=== PATIENT | male | born 1970 | race Two or more races ===

== ENCOUNTER 2025-05-27 12:25 | Emergency (ER) | payer MEDICARE, MEDICAID, SELFPAY ==
[2025-05-27 12:24] VITALS: BP 136/91; PULSE 82; O2SAT 95
[2025-05-27 12:28] VITALS: BP 136/91; PULSE 81; RESP 16; TEMP 36.7; O2SAT 96; BMI 24.0
[2025-05-27 12:30] VITALS: BP 127/72; PULSE 78; O2SAT 94
--- OUTSIDE RECORDS SUMMARY | 2025-05-27 12:46 | XMS_ITS | Clinical Summary ---
Author Organization [facility] Address [address] [place] [address] Phone Care Team Providers Care Diving Board Assembler Name Role Phone Unavailable Primary Care Provider Unavailabl e Allergies No known active allergies Medications * This document contains information received from the source organization and may not represent a complete record from that organization. 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 COPD (chronic obstructive pulmonary disease) Hyperlipidemia 05/30/2022 Osteoarthritis 05/30/2022 Gout 05/30/2022 History of drug abuse 05/30/2022 Resolved Problems Problem Noted Date Diagnosed Date Resolved Date Depression with anxiety 10/27/202301/30 Medication monitoring encounter 05/30/2022 02/16/2024 History of alcohol abuse 05/30/2022 Social History Tobacco Use Types Packs/Day Years Used Date Smoking Tobacco: Never Assessed Sex and Gender Information Value Date Recorded Sex Assigned at Not on file Legal Sex Male 1:45 PM EDT Gender Identity Not on file Sexual Orientation Not on file Plan of Treatment Health Maintenance Due Date Last Done Comments Annual Wellness Exam 1973 DTaP/TDaP/Td (1 - Tdap) 1989 Hepatitis B Vaccine (1 of 3 - 19+ 3-dose series) 1989 Pneumococcal Vaccine 50+ (1 of 2 - PCV) 1989 Cologuard 2015 Colon Cancer Screening 2015 Colonoscopy 2015 FIT 2015 Sigmoidoscopy 2015 Virtual Colonography 2015 Zoster (1 of 2) 2020 COVID-19 Vaccine (1 - 2023-2 5 season) 2025 Influenza Vaccine (#1) 2025 Meningococcal B Vaccine Aged Out No l onger eligible based on patient's age to complete this topic Insurance [address] [place] [address] [facility] [id number] [facility]
[2025-05-27 13:01] VITALS: BP 114/77; PULSE 77; O2SAT 94
--- NOTE | 2025-05-27 13:20 | XR_ITS ---
FINAL REPORT CLINICAL HISTORY: Cough, shortness of breath FINDINGS: A portable view of the chest is obtained. There is no prior exam for comparison. Cardiac and mediastinal silhouettes are normal. There are changes of emphysema. The lungs are otherwise clear. There is no pleural effusion or pneumothorax. IMPRESSION: No acute process on this portable exam. Reviewed, Interpreted and Dictated by Reshma Fontana MD Transcribed by Sharri Nava Authenticated and . [facility]
[2025-05-27 13:31] VITALS: BP 142/84; PULSE 77; O2SAT 94
[2025-05-27 13:31] LABS: Albumin Level 4.8 g/dl (3.5-5.0); Chloride 97 mmol/L (98-107)
[2025-05-27 13:32] LABS: Potassium 4.6 mmoL/L (3.5-5.1); Sodium 135 mmol/L (136-145)
[2025-05-27 13:34] LABS: Blood Urea Nitrogen 9 mg/dl (9-20); Creatinine Clearance Estimated 95 mL/min (50-200); Creatinine,Serum 0.80 mg/dl (0.66-1.25); Estimated Glomerular Filt Rate 101 ml/min (>60); GFR (African American) 122 ML/MIN (>60)
[2025-05-27 13:35] LABS: Alanine Aminotransferase 15 U/L (12-78); Albumin/Globulin Ratio 1.5 (1.1-1.8); Alkaline Phosphatase 85 U/L (38-126); Anion Gap 14.6 mEq/L (5-15); Aspartate Amino Transferase 26 U/L (17-59); Bilirubin,Total 0.7 mg/dl (0.2-1.3); Calcium 9.8 mg/dl (8.4-10.2); Carbon Dioxide 28 mmol/L (22.0-30.0); Globulin 3.1 g/dL (1.3-3.2); Glucose 112 mg/dl (74-100); Hematocrit 48.8 % (42.0-52.0); Hemoglobin 16.8 g/dL (14.1-18.0); Immature Granulocytes % 1.0 %; Mean Corpuscular HGB Conc 34.4 g/dL (31.8-35.4); Mean Corpuscular Hemoglobin 31.3 pg (27.0-31.2); Mean Corpuscular Volume 91.0 fl (80-94); Nucleated Red Blood Cells % 0 %; Platelet Count 251 K/mm3 (142-424); Red Blood Count 5.36 M/mm3 (4.60-6.20); Red Cell Distribution Width-SD 44.2 fL; Total Protein,Serum 7.9 g/dl (6.3-8.2); White Blood Count 5.9 K/mm3 (4.8-10.8)
--- NOTE | 2025-05-27 13:35 | HMH.EDGENADL ---
Discharge Plan Disposition Patient Disposition: Home, Self-Care Condition: Good Activity Restrictions/Add. Instructions Additional Instructions/Restrictions: Please return if you have any new or worsening symptoms. Clinical Impressions Clinical Impression: Bilateral wheezing Sciatica Qualifiers: Laterality: right Qualified Code(s): M54.31 - Sciatica, right side Print Language Print Language: Belgian Discharge ED Provider: Octavio Qiu Adult HPI General Chief complaint: PAIN Stated complaint: lower right back pain Time Seen by Provider: 05/27/25 12:29 Mode of Arrival: EMS Source of Information: Patient and EMS Description of Symptoms (Recalled from ER Triage Doc. by RN): pt c/o R flank/back pain x1wk. pt reports N/V. He states the pain is 10/10 and radiates distal to his RLE. pt denies injury. pt denies urinary symptoms or abd pain. pt states he has tried tylenol, asa, and iburprofen without any relief. However, he has not taken any meds today for pain. History of Present Illness HPI narrative: This is a 54-year-old male patient, with past medical history of homelessness and tobacco abuse, who is presented to the Emergency Department today for multiple complaints. The patient's chief complaint to the nursing staff and to me is variable. He tells me that his chief complaint is a cough that is productive of phlegm as well as rhinorrhea and congestion for the last couple of days. He states that he has not run any fevers. No abdominal pain, nausea, vomiting or diarrhea. No chest pain. In addition to this, the patient also states that he is having pain in his right gluteus that is radiating down the posterior aspect of the right lower extremity. He has not had any weakness of the right lower extremity, no saddle anesthesia, no fevers. He is not having any urinary incontinence or urinary retention Related Data Allergies Allergy/AdvReac Type Severity Reaction Status Date / Time No Known Allergies Allergy Verified 05/27/25 12:34 [facility] Disclaimer: The information contained in this section may have been updated after the patient was seen, as this information can be updated by other users. Social History Smoking Status: Current every day smoker alcohol intake: former current occupational status: unemployed Travel in the last 8 weeks?: None ROS Obtained: Yes Systems reviewed as appropriate & no additional complaints except as documented Physical Exam General General appearance: other (See MDM) Respiratory Respiratory exam: Present other (See MDM) Cardiovascular Cardiovascular exam: Present other (See MDM) Neurological Exam Neurological exam: Present other (See MDM) Medical Decision Making Medical Records Medical records reviewed: Yes I reviewed the patient's medical records. Screening: Per USPSTF and CDC recommendations, given the prevalence of disease in our region, it is our hospital?s policy to screen for HIV and viral Hepatitis for all patients aged 18 and over and those with ongoing risk factors. Eulogio Inquiry Pt receiving controlled substance: No Vital Signs: 05/27/25 12:24 05/27/25 12:28 05/27/25 12:30 Temperature 98.1 F Temperature Source Oral Pulse Rate 82 78 Pulse Rate [Left] 81 Respiratory Rate 16 Blood Pressure 136/91 H 127/72 Blood Pressure [Right Arm] 136/91 H Blood Pressure Mean [Right Arm] 106 Blood Pressure Source [Right Arm] Automatic Cuff Blood Pressure Position [Right Arm] Sitting 02 Sat by Pulse Oximetry 95 96 94 L Oxygen Delivery Method Room Air 05/27/25 13:01 05/27/25 13:31 05/27/25 14:49 Temperature 98.1 F Temperature Source Pulse Rate 77 77 76 Pulse Rate [Left] Respiratory Rate 18 Blood Pressure 114/77 142/84 H 112/74 Blood Pressure [Right Arm] Blood Pressure Mean [Right Arm] Blood Pressure Source [Right Arm] Blood Pressure Position [Right Arm] 02 Sat by Pulse Oximetry 94 L 94 L Oxygen Delivery Method Room Air Lab Data Lab Results 05/27/25 12:30: WBC 5.9, RBC 5.36, Hgb 16.8, Hct 48.8, MCV 91.0, MCH 31.3 H, MCHC 34.4, RDW 13.2, Plt Count 251, MPV 9.3, Neut % (Auto) 57.5, Lymph % (Auto) 33.8, Graham % (Auto) 6.6, Eos % (Auto) 0.8, Baso % (Auto) 0.3, Neut # (Auto) 3.4, Lymph # (Auto) 2.0, Graham # (Auto) 0.4, Eos # (Auto) 0.1, Baso # (Auto) 0.0, Sodium 135 L, Potassium 4.6, Chloride 97 L, Carbon Dioxide 28, Anion Gap 14.6, BUN 9, Creatinine 0.80, Estimated Creat Clear 95, Estimated GFR 101, Est GFR ( Amer) 122, Glucose 112 H, Calcium 9.8, Total Bilirubin 0.7, AST 26, ALT 15, Alkaline Phosphatase 85, Total Protein 7.9, Albumin 4.8, Globulin 3.1, Albumin/Globulin Ratio 1.5 05/27/25 12:30 05/27/25 12:30 Orders (Tests/Meds): ED MEDICATIONS Discontinued Medications Generic Name Dose Route Start Last Admin Trade Name Freq PRN Reason Stop Dose Admin Albuterol/Ipratropium 9 ml 05/27/25 13:20 05/27/25 13:41 Ipratropium/Albuterol 3 Ml Neb IH 05/27/25 13:21 9 ml ONCE ONE Administration Ketorolac Tromethamine 15 mg 05/27/25 13:22 05/27/25 13:41 Ketorolac 15mg/Ml Vial IV 05/27/25 13:23 15 mg ONCE ONE Administration Lidocaine 1 each 05/27/25 13:20 05/27/25 13:45 Lidocaine 5% Transdermal Patch TD 05/27/25 13:21 1 each ONCE ONE Administration Methocarbamol 1,000 mg 05/27/25 13:22 05/27/25 13:41 Methocarbamol 500mg Tablet PO 05/27/25 13:23 1,000 mg ONCE ONE Administration ORDERS Category Date Time Status CXR --portable [XR chest portable] Stat Exams 05/27/25 13:20 Completed CBC w/Auto Diff [Complete Blood Count Auto Diff] Stat Lab 05/27/25 12:30 Completed CMP [Comprehensive Metabolic Panel] Stat Lab 05/27/25 12:30 Completed Mini Respiratory Panel Stat Lab 05/27/25 14:23 Received Medical Decision Narrative: In summary, this is a 54-year-old male patient who is presenting to the emergency department for multiple complaints including pain that seems very consistent with right-sided sciatica as well as rhinorrhea, congestion, cough and production of phlegm for the last couple of days. Comorbidities include a past medical history of tobacco abuse as well as homelessness. Next On initial evaluation of the patient they were resting comfortably in no acute distress and nontoxic in appearance. They are hemodynamically stable, saturating well room air, and are neurologically intact. On physical examination he has wheezes in his bilateral lung neely. Heart sounds are normal. He has no abdominal tenderness to palpation. He has no midline tenderness of the C, T, or L-spine. No tenderness in the bony pelvis. He does have hypertonicity of the muscles within the right gluteus. No numbness or tingling in the extremities. 5 out of 5 strength in the proximal and distal lower extremities. Differential diagnosis includes viral syndrome, pneumonia, undiagnosed COPD, right-sided sciatica, among others. Low suspicion for spinal cord syndrome given that he is not experiencing any urinary retention, urinary incontinence, saddle anesthesia, or motor weakness Workup was initiated with hematologic labs as well as a chest x-ray and viral swabs. Initial interventions included 3 DuoNebs as well as a lidocaine patch, Toradol, and Robaxin for pain. Labs personally interpreted by me demonstrate a white blood cell count of 5.9, no actionable anemia, no electrolyte derangements or acute kidney injury. Viral swabs pending. Chest x-ray personally interpreted by me demonstrates no lobar consolidation or pleural effusion. Official radiology read is in agreement and states there is no acute abnormality. We treated the patient with 3 DuoNebs and on repeat assessment his wheezing had significantly improved. My suspicion is that his wheezing is likely due to to his underlying tobacco abuse. He does not have any increased work of breathing, accessory muscle use, or tachypnea. Additionally, his right sided sciatica pain has significantly improved and he is ambulatory without difficulty. We will discharge him home and have him return if he has any new or worsening symptoms. Critical Care Critical Care Time Critical Care Time: No
[2025-05-27] MEDS: METHOCARBAMOL 500MG TABLET 1000 MG PO (13:41)
[2025-05-27] MEDS: IPRATROPIUM/ALBUTEROL 3 ML NEB 9 ML IH (13:41)
[2025-05-27] MEDS: KETOROLAC 15MG/ML VIAL 15 MG IV (13:41)
[2025-05-27] MEDS: LIDOCAINE 5% TRANSDERMAL PATCH 1 EACH TD (13:45)
[2025-05-27 14:32] LABS: Coronavirus 19, PCR Not Detected (NotDetected); Influenza A, PCR Not Detected (NotDetected); Influenza B, PCR Not Detected (NotDetected)
--- NOTE | 2025-05-27 14:43 | PC.NURSE ---
pt reports feeling much improved. currently eating a chicken salad sandwich
--- NOTE | 2025-05-27 14:45 | PC.NURSE ---
I spoke with Kathy requesting the pt be transferred by oly to [place].
[2025-05-27 14:49] VITALS: BP 112/74; PULSE 76; RESP 18; TEMP 36.7; O2SAT 93
== END 2025-05-27 14:49 | disposition home or self-care (01) ==
PROVIDERS: Emergency Provider Student in an Organized Health Care Education/Training Program
DX: R06.2 Wheezing (principal); B34.8 Other viral infections of unspecified site; M54.31 Sciatica, right side; F17.210 Nicotine dependence, cigarettes, uncomplicated
CPT/HCPCS: 71045; 80053; 85025; 87631; 96374; 99284; J1885